=== PATIENT | female | born 1950 | race Caucasian/White ===

== ENCOUNTER 2019-12-21 13:33 | Emergency (ER) | payer MEDICARE ==
[~2019-12-21] VITALS: Ht 154.9 cm; Wt 83.6 kg
[2019-12-21 13:41] VITALS: BP 151/73
== END 2019-12-21 14:07 | disposition home or self-care (01) ==
LOC: ER 13:34
DX: B34.9 Viral infection, unspecified (principal); R05 Cough; J02.9 Acute pharyngitis, unspecified; R09.89 Other specified symptoms and signs involving the circulatory and respiratory systems; E11.9 Type 2 diabetes mellitus without complications
CPT/HCPCS: 99281

== ENCOUNTER 2022-01-08 07:19 | Day surgery (SDC) | payer MEDICARE, OTHER ==
[~2022-01-08] VITALS: Ht 156.2 cm; Wt 69.5 kg
[2022-01-08 07:43] VITALS: BP 131/72
[2022-01-08] MEDS ORDERED: METF-1203 PO (07:44)
[2022-01-08] MEDS ORDERED: fentaNYL/PF 50MCG/1 ML 2ML syringe ONE (07:44)
[2022-01-08] MEDS ORDERED: GABA-530 PO (07:44)
[2022-01-08] MEDS ORDERED: AMLO5TAB16 PO (07:44)
[2022-01-08] MEDS ORDERED: ATOR20TA66 PO (07:44)
[2022-01-08] MEDS ORDERED: LOSA100T57 PO (07:44)
[2022-01-08] MEDS ORDERED: GABAPENTIN (07:44)
[2022-01-08] MEDS ORDERED: MIDAZolam 1 MG/ML 5ML VIAL ONE (07:45)
[2022-01-08 08:24] VITALS: BP 107/48
[2022-01-08 08:33] VITALS: BP 109/72
[2022-01-08 08:43] VITALS: BP 112/68
[2022-01-08 08:53] VITALS: BP 116/69
[2022-01-08 09:03] VITALS: BP 120/70
== END 2022-01-08 09:15 | disposition home or self-care (01) ==
LOC: GI LAB 07:19
PROVIDERS: ATTEND Internal Medicine Gastroenterology
DX: Z12.11 Encounter for screening for malignant neoplasm of colon (principal); D12.2 Benign neoplasm of ascending colon; D12.4 Benign neoplasm of descending colon; K63.5 Polyp of colon; K62.1 Rectal polyp; K57.30 Diverticulosis of large intestine without perforation or abscess without bleeding; I10 Essential (primary) hypertension; E11.9 Type 2 diabetes mellitus without complications; Z79.899 Other long term (current) drug therapy; Z79.84 Long term (current) use of oral hypoglycemic drugs; Z80.0 Family history of malignant neoplasm of digestive organs
CPT/HCPCS: 45385; 88305; C1773; G0500; J2250; J3010; J7040; Z7512; 99152; 99153; A4620